=== PATIENT | female | born 1950 | race Caucasian/White ===

== ENCOUNTER → 2023-10-11 14:41 | Outpatient (REF) | payer MEDICARE, SELFPAY | LOC: HWRAD 14:41 | PROVIDERS: ATTENDING PHYSICIAN Podiatrist Foot & Ankle Surgery; FAMILY PHYSICIAN Internal Medicine | DX: M76.822 Posterior tibial tendinitis, left leg (principal); M19.072 Primary osteoarthritis, left ankle and foot | CPT/HCPCS: 73630 ==

== ENCOUNTER → 2023-10-28 06:34 | Outpatient (REF) | payer MEDICARE, SELFPAY ==
[2023-10-28 10:08] LABS: % Basophils 0.5 % (0-2); % Eosinophils 0.6 % (0-6); % Immature Granulocytes 0.6 % (0-0.5); % Lymphocytes 24.2 % (20.5-51.1); % Monocytes 4.5 % (1.7-9.3); % Neutrophils 69.6 % (42.2-75.2); Absolute Basophils 0.1 10^3/uL (0-0.2); Absolute Eosinophils 0.1 10^3/uL (0-0.7); Absolute Immature Granulocytes 0.1 10^3/uL (0-0.05); Absolute Lymphocytes 3.4 10^3/uL (1.2-3.4); Absolute Monocytes 0.6 10^3/uL (0.1-0.6); Absolute Neutrophils 9.6 10^3/uL (1.4-6.5); Hemoglobin 14.6 g/dL (12.0-16.0); Mean Corp Hgb Conc. 33.2 g/dL (33.0-37.0); Mean Corpuscular Hgb 30.8 pg (27.0-31.0); Mean Corpuscular Volume 92.8 fL (81.0-99.0); Mean Platelet Volume 9.1 fL (7.4-10.4); Nucleated Red Blood Cells % 0 %; Platelet Count 304 10^3/uL (130-400); Red Blood Cell Count 4.74 10^6/uL (4.20-5.40); Red Cell Dist. Width 12.9 % (11.5-14.5); White Blood Cell Count 13.9 10^3/uL (4.8-10.8)
[2023-10-28 11:43] LABS: ALT (SGPT) 25 U/L (0-35); AST (SGOT) 24 U/L (14-36); Albumin 4.6 g/dl (3.5-5.0); Alkaline Phosphatase 89 U/L (38-126); Blood Urea Nitrogen 25 mg/dl (7-17); Carbon Dioxide 28 mmol/L (22-30); Chloride 104 mmol/L (98-107); Glucose 104 mg/dl (70-99); HDL Cholesterol 58 mg/dl; LDL Cholesterol, Calculated 105 mg/dl; Potassium 5.1 mmol/L (3.5-5.1); Sodium 138 mmol/L (135-145); Total Bilirubin 0.9 mg/dl (0.2-1.3); Total Cholesterol 182 mg/dl (50-199); Total Protein 7.1 g/dl (6.3-8.2); Triglyceride 98 mg/dl (10-149); Very Low Density Lipoprotein 19 mg/dl (0-30); eGFR > 60.00
== END ==
LOC: HWLAB 06:34
PROVIDERS: ATTENDING PHYSICIAN Internal Medicine
DX: E03.9 Hypothyroidism, unspecified (principal); K64.9 Unspecified hemorrhoids; R79.89 Other specified abnormal findings of blood chemistry; E66.9 Obesity, unspecified; E78.2 Mixed hyperlipidemia; Z00.00 Encounter for general adult medical examination without abnormal findings; Z12.31 Encounter for screening mammogram for malignant neoplasm of breast
CPT/HCPCS: 36415; 80053; 80061; 85025

== ENCOUNTER → 2023-11-28 09:57 | Outpatient (REF) | payer MEDICARE, SELFPAY ==
[2023-11-28 13:08] LABS: % Basophils 0.5 % (0-2); % Eosinophils 0.6 % (0-6); % Immature Granulocytes 0.8 % (0-0.5); % Monocytes 4.1 % (1.7-9.3); Absolute Basophils 0.1 10^3/uL (0-0.2); Absolute Eosinophils 0.1 10^3/uL (0-0.7); Absolute Immature Granulocytes 0.1 10^3/uL (0-0.05); Absolute Monocytes 0.4 10^3/uL (0.1-0.6); Hemoglobin 14.4 g/dL (12.0-16.0); Mean Corp Hgb Conc. 33.5 g/dL (33.0-37.0); Mean Corpuscular Volume 92.5 fL (81.0-99.0); Mean Platelet Volume 9.6 fL (7.4-10.4); Nucleated Red Blood Cells % 0 %; Platelet Count 287 10^3/uL (130-400); Red Blood Cell Count 4.65 10^6/uL (4.20-5.40); Red Cell Dist. Width 13.1 % (11.5-14.5); White Blood Cell Count 10.6 10^3/uL (4.8-10.8)
== END ==
LOC: HWLAB 09:57
PROVIDERS: ATTENDING PHYSICIAN Internal Medicine
DX: D72.829 Elevated white blood cell count, unspecified (principal)
CPT/HCPCS: 36415; 85025

== ENCOUNTER → 2024-02-24 11:21 | Outpatient (REF) | payer MEDICARE, SELFPAY ==
[2024-02-24 13:00] LABS: % Basophils 0.6 % (0-2); % Eosinophils 1.1 % (0-6); % Immature Granulocytes 0.6 % (0-0.5); % Lymphocytes 23.1 % (20.5-51.1); % Monocytes 4.5 % (1.7-9.3); % Neutrophils 70.1 % (42.2-75.2); Absolute Basophils 0.1 10^3/uL (0-0.2); Absolute Eosinophils 0.1 10^3/uL (0-0.7); Absolute Immature Granulocytes 0.1 10^3/uL (0-0.05); Absolute Lymphocytes 2.4 10^3/uL (1.2-3.4); Absolute Monocytes 0.5 10^3/uL (0.1-0.6); Absolute Neutrophils 7.2 10^3/uL (1.4-6.5); Hematocrit 40.9 % (37.0-47.0); Mean Corp Hgb Conc. 34.2 g/dL (33.0-37.0); Mean Corpuscular Hgb 31.2 pg (27.0-31.0); Mean Corpuscular Volume 91.1 fL (81.0-99.0); Mean Platelet Volume 9.4 fL (7.4-10.4); Nucleated Red Blood Cells % 0 %; Platelet Count 290 10^3/uL (130-400); Red Blood Cell Count 4.49 10^6/uL (4.20-5.40); Red Cell Dist. Width 12.5 % (11.5-14.5); White Blood Cell Count 10.2 10^3/uL (4.8-10.8)
[2024-02-24 13:34] LABS: ALT (SGPT) 39 U/L (0-35); AST (SGOT) 34 U/L (14-36); Albumin 4.4 g/dl (3.5-5.0); Alkaline Phosphatase 92 U/L (38-126); Blood Urea Nitrogen 26 mg/dl (7-17); Calcium 11.2 mg/dl (8.4-10.2); Carbon Dioxide 28 mmol/L (22-30); Chloride 100 mmol/L (98-107); Glucose 95 mg/dl (70-99); Potassium 4.9 mmol/L (3.5-5.1); Sodium 135 mmol/L (135-145); Total Bilirubin 0.5 mg/dl (0.2-1.3); Total Protein 6.6 g/dl (6.3-8.2); eGFR > 60.00
[2024-02-24 14:04] LABS: TSH Reflex To Free T4 2.78 uIU/ml (0.47-4.68)
== END ==
LOC: HWLAB 11:21
PROVIDERS: ATTENDING PHYSICIAN Internal Medicine
DX: R42 Dizziness and giddiness (principal); E03.9 Hypothyroidism, unspecified
CPT/HCPCS: 36415; 80053; 84443; 85025

== ENCOUNTER 2024-03-06 15:19 | Emergency (ER) | payer MEDICARE, SELFPAY ==
[2024-03-06 15:23] VITALS: BP 144/87
[2024-03-06 15:55] LABS: % Basophils 0.6 % (0-2); % Eosinophils 1.6 % (0-6); % Immature Granulocytes 0.6 % (0-0.5); % Lymphocytes 25.3 % (20.5-51.1); % Neutrophils 66.9 % (42.2-75.2); Absolute Basophils 0.1 10^3/uL (0-0.2); Absolute Eosinophils 0.2 10^3/uL (0-0.7); Absolute Immature Granulocytes 0.1 10^3/uL (0-0.05); Absolute Lymphocytes 2.7 10^3/uL (1.2-3.4); Absolute Monocytes 0.5 10^3/uL (0.1-0.6); Absolute Neutrophils 7.1 10^3/uL (1.4-6.5); Hematocrit 39.1 % (37.0-47.0); Hemoglobin 13.5 g/dL (12.0-16.0); Mean Corp Hgb Conc. 34.5 g/dL (33.0-37.0); Mean Corpuscular Volume 89.9 fL (81.0-99.0); Mean Platelet Volume 9.1 fL (7.4-10.4); Nucleated Red Blood Cells % 0 %; Platelet Count 273 10^3/uL (130-400); Red Blood Cell Count 4.35 10^6/uL (4.20-5.40); Red Cell Dist. Width 12.4 % (11.5-14.5); White Blood Cell Count 10.6 10^3/uL (4.8-10.8)
[2024-03-06 16:15] LABS: ALT (SGPT) 64 U/L (0-35); AST (SGOT) 50 U/L (14-36); Albumin 4.4 g/dl (3.5-5.0); Alkaline Phosphatase 92 U/L (38-126); Blood Urea Nitrogen 19 mg/dl (7-17); Calcium 10.6 mg/dl (8.4-10.2); Carbon Dioxide 27 mmol/L (22-30); Chloride 104 mmol/L (98-107); Glucose 116 mg/dl (70-99); Potassium 4.3 mmol/L (3.5-5.1); Sodium 140 mmol/L (135-145); Total Bilirubin 0.4 mg/dl (0.2-1.3); Total Protein 6.6 g/dl (6.3-8.2); eGFR > 60.00
[2024-03-06 18:18] VITALS: BP 138/84
--- NOTE | 2024-03-06 19:22 | ED.CVA ---
History of Present Illness
General
Chief Complaint: CVA/TIA Symptoms
Source: patient
Exam Limitations: none
Time Seen by Provider: 03/06/24 18:17
Nursing documentation reviewed up to this point in time: agreed with
Onset of Stroke Symptoms
Onset of symptoms known: No
Time pt last seen normal is known: No
History of Present Illness
History of Present Illness:
Patient is a 73-year-old female who presents to the ER for evaluation. She reports her in the end of December and she became very depressed and admitted herself to [facility] on January 23 for 3 weeks. She was started on a lot of
medication but continued on Lexapro and Abilify. She started to feel very dizzy and lightheaded 3 weeks ago. She felt that she has some twitching in her mouth and her psychiatrist took her off of Abilify 4 days ago and cut her Lexapro in half.
For the past 3 to 4 days however she notices that her hands feel bilaterally weak and her speech is different. She feels that her 's ' sounds different than they normally do and that at times she talks with a lisp. she reports that she thinks she
sounds like she has ' tardive dyskinesia.'
She denies any headache .
Past History
Past History
ED Past Medical History: Hypercholesterolemia and Hypothyroidism
Social History
Tobacco: Non-smoker
Alcohol: Occasional
Drug: None
Review of Systems
Review of Systems
Allergies reviewed?: Yes
All Other Systems: ROS reviewed and negative except as documented in HPI and ROS
Constitutional: Reports no symptoms
EENT: Reports no symptoms
Respiratory: Reports no symptoms
Cardiac: Reports no symptoms
ABD/GI: Reports no symptoms
: Reports no symptoms
Musculoskeletal: Reports no symptoms
Skin: Reports no symptoms
Neurological: Reports other (speech is different sensation that hands feel weak )
Psychiatric: Reports no symptoms
Phy Exam
General Physical Exam
General Presentation: no apparent distress
General age: appears stated age
General Skin: warm and dry
General Habitus: normal
General Mental: alert
General Hydration: appears well hydrated
ENT Exam
ENT Exam: EOMI
Eye Exam
Eye Exam: PERRL and EOMI
Eye Exam General: PERRL: bilateral and EOM intact: bilateral
Pupil Exam: Bilateral: round and reactive
Cardiovascular Exam
Cardiovascular Exam: regular rate/rhythm, no murmur and normal peripheral pulses
Pulmonary Exam
Pulmonary Exam: lungs clear and no respiratory distress
Neurological Exam
Neurological Exam: alert, oriented x3, no motor deficits, no sensory deficits and other (Full strength in upper and lower extremities bilaterally normal director safety council strength bilaterally normal sensation bilaterally no facial droop speech is clear at times
her 's ' sound like a lisp )
NIH Stroke Score
Level of Consciousness: 0 - Alert
LOC questions: 0-Answers both correctly
LOC Commands: 0-Performs both correctly
Best Gaze: 0-Normal
Visual James: 0=Normal, no visual loss
Facial palsy: 0=Normal, symmetrical
Motor - Right Arm: 0=No drift 10 seconds
Motor - Left Arm: 0=No drift 10 seconds
Motor - Right Le-No drift 5 seconds
Motor - Left Le-No drift 5 seconds
Limb Ataxia: 0-Absent
Sensation: 0-Normal
Best Language: 0-No aphasia
Dysarthria: 0-Normal
Extinction and Inattention: 0-No abnormality
Total Score:: 0
[place] Coma Scale
Eye Opening: Spontaneous
Verbal Response: Oriented
Motor Response: Obeys Commands
GCS Total Score: 15
Cerebellar
Cerebellar Function: normal finger to nose
Musculoskeletal Exam
Musculoskeletal Exam: full ROM
Skin Exam
Skin Exam: normal color and warm/dry
Psychiatric Exam
Psychiatric Exam: normal mood/affect
Course
Orders/Labs/Results
Orders:
Orders
03/06/24 15:40
Electrocardiogram (*1) Urgent
Reason for Study: Chest Pain
EKG- Treatment ONCE
03/06/24 15:45
Complete Blood Count/With Diff Urgent
Comprehensive Metabolic Panel Urgent
03/06/24 19:28
CT Head W/o Iv Contrast Urgent
Comment:
Reason For Exam: cva
Abnormal Lab Results
03/06/24
15:45
Abs Immat Gran (auto) 0.1 H 10^3/uL
(0-0.05)
Absolute Neuts (auto) 7.1 H 10^3/uL
(1.4-6.5)
Immature Gran % 0.6 H %
(0-0.5)
BUN 19 H mg/dl
(7-17)
Glucose 116 H mg/dl
(70-99)
Calcium 10.6 H mg/dl
(8.4-10.2)
AST 50 H U/L
(14-36)
ALT 64 H U/L
(0-35)
03/06/24 15:45
03/06/24 15:45
Vital Signs
Initial and Last Documented VS:
Initial Vital Signs
Temp Pulse Resp BP Pulse Ox
98.7 F 104 20 144/87 96
03/06/24 15:23 03/06/24 15:23 03/06/24 15:23 03/06/24 15:23 03/06/24 15:23
Last Documented Vital Signs
Temp Pulse Resp BP Pulse Ox
98.7 F 84 13 138/84 97
03/06/24 15:23 03/06/24 18:18 03/06/24 18:18 03/06/24 18:18 03/06/24 18:19
Inventory Representative consulted with Physician
Inventory Representative consulted with physician?: Yes
Name of Physician Consulted: Paula
MDM/Problems Addressed
Differential Diagnosis Includes:
Not limited to medication reaction tardive dyskinesia less likely CVA
MDM/Problems Addressed:
Symptoms are likely medication reaction from Abilify. Patient was just taken off his medicine by psychiatrist. While on this medication she had some facial twitching and since then has had intermittent speech issues. At times she reports her 'S
Sounds' sound like a Lisp. On exam I am minimally able to appreciate this however patient has no neurological deficits. No headache, CT head negative. No concerning findings consistent with stroke.
No history of hypertension or heart disease. Patient is well-appearing in no acute distress case reviewed ED physician likely from medications will try [id number] Benadryl as needed. Patient agreeable with this plan. I did recommend close
outpt follow up with PCP and psychiatrist.
Chronic conditions affecting care:
Recent treatment for depression
*Critical Care Note
Total Time (30-74mins, 75-104mins- exclusive of procedures): Not Applicable
ED Attending Note
-
Portions of this chart may have been created with voice recognition software.� Occasional wrong word or��sound alike� substitutions may have occurred due to the inherent limitations of voice recognition software.
Discharge Plan
Departure
Patient Disposition: Home (Routine Discharge)
Date of Disposition: 03/06/24
Time of Disposition: 23:13
Patient with high blood pressure during this ER visit?: Yes
Condition: Fair
Covid-19: Not Applicable
Discharge Problem:
medication reaction
Instructions: Adverse Drug Reactions, Adult ED
Prescriptions:
No Action
doxycycline hyclate 100 mg capsule
100 mg PO BID Qty: 14 0RF
Referrals:
Haley Richey DO [Family Provider] -
Activity Restrictions/Additional Instructions:
Follow-up with your family doctor and psychiatrist in the next several days for reevaluation. return if any worsening of symptoms you may take benadryl as needed.
Interventions
Interventions:
*Risk Screen - Suicide Last Done: 03/06/24 15:23
*General Assessment Last Done: 03/06/24 15:23
*Neglect/Abuse Screening Last Done: 03/06/24 15:23
ED- Fall Risk Assessment Last Done: 03/06/24 18:19
*ED COVID-19 Vaccine History Last Done: 03/06/24 18:18
ED- Cardiac Assessment Last Done: 03/06/24 18:19
ED- Neurological Assessment Last Done: 03/06/24 18:19
ED- Pulmonary Assessment Last Done: 03/06/24 18:19
ED Swallowing Screen Last Done: 03/06/24 21:50
Discharge Date and Time
Print Language: CITIZEN OF [place]
== END 2024-03-06 23:34 | disposition home or self-care (01) ==
LOC: EMR 15:19
PROVIDERS: Emergency Medicine; EMERGENCY PHYSICIAN Emergency Medicine; FAMILY PHYSICIAN Internal Medicine
DX: R53.1 Weakness (principal); R47.81 Slurred speech; T43.595A Adverse effect of other antipsychotics and neuroleptics, initial encounter; F32.A Depression, unspecified; E78.00 Pure hypercholesterolemia, unspecified; E03.9 Hypothyroidism, unspecified
CPT/HCPCS: 99284; 70450; 80053; 85025; 93005

== ENCOUNTER → 2024-03-09 09:24 | Outpatient (REF) | payer MEDICARE, SELFPAY ==
[2024-03-09 11:15] LABS: ALT (SGPT) 75 U/L (0-35); AST (SGOT) 47 U/L (14-36); Albumin 4.4 g/dl (3.5-5.0); Alkaline Phosphatase 100 U/L (38-126); Blood Urea Nitrogen 19 mg/dl (7-17); Calcium 10.6 mg/dl (8.4-10.2); Carbon Dioxide 30 mmol/L (22-30); Chloride 101 mmol/L (98-107); Glucose 103 mg/dl (70-99); Potassium 4.6 mmol/L (3.5-5.1); Sodium 139 mmol/L (135-145); Total Bilirubin 0.7 mg/dl (0.2-1.3); Total Protein 6.6 g/dl (6.3-8.2); eGFR > 60.00
[2024-03-09 11:32] LABS: Vitamin D, 25-OH*** 29.9 ng/mL (30-80)
[2024-03-10 09:35] LABS: Intact PTH 113.4 pg/ml (13.6-85.8)
== END ==
LOC: HWLAB 09:24
PROVIDERS: ATTENDING PHYSICIAN Internal Medicine
DX: E83.52 Hypercalcemia (principal)
CPT/HCPCS: 36415; 80053; 82306; 83970

== ENCOUNTER → 2024-04-09 07:29 | Outpatient (REF) | payer MEDICARE, SELFPAY ==
[2024-04-09 08:25] LABS: Ionized Calcium 1.26 mMOL/L (1.15-1.33)
[2024-04-09 09:02] LABS: ALT (SGPT) 45 U/L (0-35); AST (SGOT) 30 U/L (14-36); Albumin 4.2 g/dl (3.5-5.0); Alkaline Phosphatase 90 U/L (38-126); Blood Urea Nitrogen 21 mg/dl (7-17); Calcium 10.2 mg/dl (8.4-10.2); Carbon Dioxide 31 mmol/L (22-30); Chloride 104 mmol/L (98-107); Glucose 101 mg/dl (70-99); Potassium 4.5 mmol/L (3.5-5.1); Sodium 145 mmol/L (135-145); Total Bilirubin 0.5 mg/dl (0.2-1.3); Total Protein 6.5 g/dl (6.3-8.2); eGFR > 60.00
[2024-04-09 09:22] LABS: Vitamin D, 25-OH*** 39.7 ng/mL (30-80)
[2024-04-11 12:08] LABS: Intact PTH 78.4 pg/ml (13.6-85.8)
== END ==
LOC: REG 07:29
PROVIDERS: ATTENDING PHYSICIAN Internal Medicine Endocrinology, Diabetes & Metabolism; FAMILY PHYSICIAN Internal Medicine
DX: M81.0 Age-related osteoporosis without current pathological fracture (principal); E55.9 Vitamin D deficiency, unspecified; R42 Dizziness and giddiness; R79.89 Other specified abnormal findings of blood chemistry; R74.8 Abnormal levels of other serum enzymes
CPT/HCPCS: 36415; 80053; 82306; 82330; 83970

== ENCOUNTER → 2024-04-12 07:28 | Outpatient (REF) | payer MEDICARE, SELFPAY | LOC: PAVMRI 07:28 | PROVIDERS: ATTENDING PHYSICIAN Internal Medicine; REFERRING PHYSICIAN Psychiatry & Neurology Psychiatry | DX: R42 Dizziness and giddiness (principal); R79.89 Other specified abnormal findings of blood chemistry; R74.8 Abnormal levels of other serum enzymes | CPT/HCPCS: 70553; A9575 ==

== ENCOUNTER → 2024-10-05 11:55 | Outpatient (REF) | payer MEDICARE, SELFPAY | LOC: HWRAD 11:55 | PROVIDERS: ATTENDING PHYSICIAN Specialist; FAMILY PHYSICIAN Internal Medicine; REFERRING PHYSICIAN Chiropractor | DX: M25.569 Pain in unspecified knee (principal) | CPT/HCPCS: 73560 ==

== ENCOUNTER → 2024-10-10 12:00 | Outpatient (REF) | payer MEDICARE, SELFPAY | LOC: HWRAD 12:00 | PROVIDERS: ATTENDING PHYSICIAN Specialist; FAMILY PHYSICIAN Family Medicine; REFERRING PHYSICIAN Chiropractor | DX: R07.82 Intercostal pain (principal); M54.51 Vertebrogenic low back pain; M43.16 Spondylolisthesis, lumbar region; M54.14 Radiculopathy, thoracic region | CPT/HCPCS: 71100; 72072; 72114; 72170 ==

== ENCOUNTER → 2024-10-17 07:44 | Outpatient (REF) | payer MEDICARE, SELFPAY ==
[2024-10-17 10:29] LABS: HDL Cholesterol 44 mg/dl; LDL Cholesterol, Calculated 95 mg/dl; Total Cholesterol 178 mg/dl (50-199); Triglyceride 197 mg/dl (10-149); Very Low Density Lipoprotein 39 mg/dl (0-30)
== END ==
LOC: HWWDC 07:44
PROVIDERS: ATTENDING PHYSICIAN Internal Medicine; REFERRING PHYSICIAN Internal Medicine Endocrinology, Diabetes & Metabolism
DX: Z12.31 Encounter for screening mammogram for malignant neoplasm of breast (principal); E66.9 Obesity, unspecified; E78.2 Mixed hyperlipidemia
CPT/HCPCS: 36415; 77063; 77067; 80061

== ENCOUNTER → 2024-10-19 13:46 | Outpatient (REF) | payer MEDICARE, SELFPAY | LOC: HWRAD 13:46 | PROVIDERS: ATTENDING PHYSICIAN Podiatrist Foot & Ankle Surgery; FAMILY PHYSICIAN Internal Medicine | DX: S92.912A Unspecified fracture of left toe(s), initial encounter for closed fracture (principal) | CPT/HCPCS: 73630 ==

== ENCOUNTER → 2025-01-02 10:30 | Outpatient (REF) | payer MEDICARE, SELFPAY ==
[2025-01-02 11:57] LABS: Uric Acid 4.4 mg/dl (2.5-6.2)
== END ==
LOC: HWLAB 10:30
PROVIDERS: ATTENDING PHYSICIAN Podiatrist Foot & Ankle Surgery; FAMILY PHYSICIAN Internal Medicine
DX: M10.9 Gout, unspecified (principal)
CPT/HCPCS: 36415; 84550

== ENCOUNTER → 2025-02-01 08:54 | Outpatient (REF) | payer MEDICARE, SELFPAY ==
[2025-02-01 09:36] LABS: Hematocrit 41.8 % (37.0-47.0); Hemoglobin 13.9 g/dL (12.0-16.0); Mean Corp Hgb Conc. 33.3 g/dL (33.0-37.0); Mean Corpuscular Volume 93.5 fL (81.0-99.0); Nucleated Red Blood Cells % 0 %; Platelet Count 235 10^3/uL (130-400); Red Cell Dist. Width 12.6 % (11.5-14.5)
[2025-02-01 10:07] LABS: ALT (SGPT) 21 U/L (0-35); AST (SGOT) 24 U/L (14-36); Albumin 4.6 g/dl (3.5-5.0); Alkaline Phosphatase 76 U/L (38-126); Blood Urea Nitrogen 18 mg/dl (7-17); Calcium 10.8 mg/dl (8.4-10.2); Carbon Dioxide 32 mmol/L (22-30); Chloride 106 mmol/L (98-107); Glucose 99 mg/dl (70-99); Potassium 5.0 mmol/L (3.5-5.1); Sodium 141 mmol/L (135-145); Total Protein 7.0 g/dl (6.3-8.2); eGFR > 60.00
[2025-02-01 10:25] LABS: Vitamin D, 25-OH*** 72.4 ng/mL (30-80)
[2025-02-01 10:38] LABS: TSH 2.98 uIU/ml (0.47-4.68)
== END ==
LOC: REG 08:54
PROVIDERS: ATTENDING PHYSICIAN Internal Medicine Endocrinology, Diabetes & Metabolism; FAMILY PHYSICIAN Internal Medicine; OTHER PHYSICIAN Nurse Practitioner Primary Care
DX: M81.0 Age-related osteoporosis without current pathological fracture (principal); E55.9 Vitamin D deficiency, unspecified; Z79.899 Other long term (current) drug therapy
CPT/HCPCS: 36415; 80053; 82306; 82330; 83970; 84439; 84443; 85025

== ENCOUNTER → 2025-02-12 10:46 | Outpatient (REF) | payer MEDICARE, SELFPAY | LOC: HWRAD 10:46 | PROVIDERS: ATTENDING PHYSICIAN Specialist; FAMILY PHYSICIAN Internal Medicine | DX: M25.511 Pain in right shoulder (principal) | CPT/HCPCS: 73200 ==

== ENCOUNTER → 2025-02-20 10:26 | Outpatient (REF) | payer MEDICARE, SELFPAY | LOC: MRI 3T 10:26 | PROVIDERS: ATTENDING PHYSICIAN Specialist; FAMILY PHYSICIAN Internal Medicine | DX: M54.16 Radiculopathy, lumbar region (principal) | CPT/HCPCS: 72148 ==

== ENCOUNTER → 2025-03-19 09:09 | Outpatient (REF) | payer MEDICARE, SELFPAY | LOC: HWRAD 09:09 | PROVIDERS: ATTENDING PHYSICIAN Internal Medicine Endocrinology, Diabetes & Metabolism; FAMILY PHYSICIAN Internal Medicine | DX: E83.52 Hypercalcemia (principal) | CPT/HCPCS: 76536 ==

== ENCOUNTER → 2025-03-27 08:53 | Outpatient (REF) | payer MEDICARE, SELFPAY | LOC: RAD 08:53 | PROVIDERS: ATTENDING PHYSICIAN Internal Medicine Endocrinology, Diabetes & Metabolism; FAMILY PHYSICIAN Internal Medicine | DX: E83.52 Hypercalcemia (principal) | CPT/HCPCS: 78071; A9500 ==

== ENCOUNTER 2025-04-16 10:16 | Inpatient (IN) | payer MEDICARE, SELFPAY ==
--- NOTE | 2025-03-14 16:11 | CM ---
CM received call from patient's mental health counselor that patient was very anxious about her upcoming surgery and would require home care. CM stated that patient will be called to discuss any further discharge planning. Counselor advised this CM
that she has called [facility] to confirm patient was eligible for home care.
CM spoke with patient regarding discharge planning post operatively.
Demographics: lives alone independently.
Living situation: lives alone, neighbor will be driving patient, last year and patient has no children
Support Person Post Operatively: neighbor
History of
VN: No
SNF: No
Outpatient: Patient does not have a ride to outpatient therapy appointments, requesting home care.
Has patient purchased required equipment: yes
PCP: Dr. Richey
Pharmacy: [facility]
Post Operative Discharge Plan: Home care
--- NOTE | 2025-03-25 11:54 | CM ---
CM received call from patient asking questions regarding a second opinion she received. CLEMENCIA spoke with Mary at [facility]. Mary will contact patient.
--- NOTE | 2025-04-01 15:12 | VNURNOTE ---
Patient is scheduled for an elective R reverse TSA on 04/16 ELIDIA - he is a same day patient with Dr Mauricio. Spoke with patient prior to surgery. Introduced role of [facility] Liaison. Patient reports that she lives alone. She reports that her neighbor can
assist her post op.
PCP is Dr Haley Richey
Discussed SDS joint protocol and post surgical plans.
Reviewed that she will have VN services initially.
Patient selects [facility] for HH needs.
Patient is in agreement with plan. [facility] contact number provided. Referral placed in [facility].
Plan: [facility]
[2025-04-05 14:13] VITALS: BMI 32.6
[2025-04-05 14:32] LABS: Hematocrit 41.0 % (37.0-47.0); Hemoglobin 13.6 g/dL (12.0-16.0); Mean Corp Hgb Conc. 33.2 g/dL (33.0-37.0); Mean Corpuscular Volume 94.3 fL (81.0-99.0); Platelet Count 254 10^3/uL (130-400); Red Cell Dist. Width 12.4 % (11.5-14.5)
[2025-04-05 15:02] LABS: ALT (SGPT) 21 U/L (0-35); AST (SGOT) 22 U/L (14-36); Albumin 4.5 g/dl (3.5-5.0); Alkaline Phosphatase 81 U/L (38-126); Blood Urea Nitrogen 20 mg/dl (7-17); Calcium 10.6 mg/dl (8.4-10.2); Carbon Dioxide 28 mmol/L (22-30); Chloride 104 mmol/L (98-107); Estimated Creatinine Clearance 85 ml/min; Glucose 89 mg/dl (70-99); Potassium 4.4 mmol/L (3.5-5.1); Sodium 139 mmol/L (135-145); Total Protein 7.0 g/dl (6.3-8.2); eGFR > 60.00
[2025-04-06 09:29] LABS: Glycohemoglobin (HgbA1c) 5.6 % (4.0-5.6)
[2025-04-09 12:55] VITALS: BMI 32.6
[2025-04-16] VITALS (10 sets, daily range): BP systolic 111–156; BP diastolic 67–76
[2025-04-16] MEDS: NORMOSOL-R/PLASMALYTE-A 1000 IV ×3 (10:25→18:14)
[2025-04-16] MEDS: TYLENOL 1000 MG PO (10:35)
[2025-04-16] MEDS: CELEBREX 200 MG PO (10:35)
--- NOTE | 2025-04-16 10:35 | W.PN.UPDATE ---
Update Note
Progress Note Update
R shoulder OA w/ rotator cuff arthropathy s/p R Reverse TSA w/ Dr Mauricio 04/16/2025
DVT prophylaxis - ASA, b/l venous foot pumps
HTN - + parameters - monitor BP
HLD
DDD
Hypothyroidism
Hyperparathyroidism
PTSD
Depression
Anxiety
Vitamin D deficiency
Osteopenia
--- NOTE | 2025-04-16 17:00 | PTCARENOTE ---
Pt arrived to 2S in bed. Full assessment completed. RUE NWB maintained in sling. RUE neurovascular assessment WDL. R shoulder DSG C/D/I. IVF infusing per order. Pt tearful reflecting on husbands within the past year, emotional support
provided. Bed locked and in the lowest position, safety maintained. Oriented to room and call latham.
[2025-04-16] MEDS: ASPIRIN 325 MG PO (18:12)
[2025-04-16] MEDS: ROXICODONE 10 MG PO ×2 (18:12→23:39)
[2025-04-16] MEDS: VITAMIN D3 (cholecalciferol) 50 MCG PO (18:12)
[2025-04-16] MEDS: TYLENOL 650 MG PO ×3 (18:12→23:39)
[2025-04-16] MEDS: VITAMIN B-12 1000 MCG PO (18:12)
[2025-04-16] MEDS: PROSCAR 5 MG PO (18:13)
[2025-04-16] MEDS: ANCEF 5 IV (20:08)
[2025-04-16] MEDS: BACTROBAN 2% OINTMENT 1 APPLIC NASAL (20:09)
[2025-04-16] MEDS: LONITEN 1.25 MG PO (20:09)
[2025-04-16] MEDS: DECADRON 4 MG PO (20:10)
[2025-04-16] MEDS: COLACE 100 MG PO (20:12)
[2025-04-16] MEDS: SENOKOT PO (20:12)
[2025-04-16] MEDS: NEURONTIN 300 MG PO (21:55)
[2025-04-16] MEDS: PEPCID 20 MG PO (21:55)
[2025-04-16] MEDS: LIPITOR 40 MG PO (21:55)
[2025-04-17] MEDS: ANCEF 5 IV (03:16)
[2025-04-17 03:24] VITALS: BP 104/63
[2025-04-17] MEDS: TYLENOL PO (04:39)
[2025-04-17] MEDS: SYNTHROID 50 MCG PO (05:33)
[2025-04-17 07:20] VITALS: BP 113/64
--- NOTE | 2025-04-17 09:06 | CM ---
CM discussed discharge plan with OT and orthopedic PA. CM updated [facility] Admission RN.
PLAN: [facility]
--- NOTE | 2025-04-17 09:11 | W.PN.ORTHO ---
Today's Communication / Plan
-
D/c today if remaining clinically stable.
Will be d/c w/ VN, home OT.
Assessment
.
Distal Motor Intact: Yes
Dressing:
Quarter-sized area of old incisional bleeding. Dressing otherwise C/D/I.
Assessment:
R shoulder OA w/ rotator cuff arthropathy s/p R Reverse VIANEY w/ Dr Mauricio 04/16/2025
DVT prophylaxis - ASA, b/l venous foot pumps
HTN - + parameters - BPs overall stable
Chronic pain syndrome w/ opioid dependence - patient happy w/ pain regimen for d/c
HLD
DDD
Hypothyroidism
Hyperparathyroidism
PTSD
Depression
Anxiety
Vitamin D deficiency
Osteopenia
Plan
.
Surgery / Date: R Reverse TSA w/ Dr Mauricio 04/16/2025
DVT Prophylaxis: Aspirin
Activity:
Out of bed.
PT/OT
Discharge Plan: Home w/ VN
Subjective
.
.:
Patient examined resting in bed.
Reports back pain but appears comfortable. H/o chronic pain at baseline. Is due for pain meds.
Denies any other new significant complaints.
Vital Signs and Labs
.
Vital Signs and Labs:
Lab Results
04/05/25 12:50
04/05/25 12:50
Temp Pulse Resp BP Pulse Ox
98 F 96 16 104/63 93
04/17/25 03:24 04/17/25 03:24 04/17/25 03:24 04/17/25 03:24 04/17/25 03:24
Non-invasive Hgb result: 16.3
Physical Exam
-
HEENT: No pallor, cyanosis, or jaundice. Throat clear.
NECK: Supple. No JVD.
RESPIRATORY: Lungs clear to auscultation.
CVS: S1, S2 normal. RRR.�
ABDOMEN: Soft, non-tender. No distension. Obese.
EXTREMITIES: + RUE sling. Able to wiggle fingers b/l. Good densitometer reader, radial pulses b/l. Strength equal, no calf pain with palpation/dorsiflexion. Calves soft.
PICKING SUPERVISOR: AOx3. No focal deficits. map mounter grossly intact
--- NOTE | 2025-04-17 09:20 | W.DS.TRANS ---
DC Summary - Public Welfare Director
-
Discharge Instructions:
Sleep Apnea Risk Low
Discharge Diagnosis/Procedures R shoulder OA w/ rotator cuff arthropathy s/p R
Reverse TSA w/ Dr Mauricio 04/16/2025
Diet Regular
Additional Diets Adequate hydration, minimize opioids, and wear
TEDs stockings to prevent low blood pressure/
dizziness.
Activity As tolerated
Additional Activity Non-weightbearing right upper extremity
Driving Restrictions Not until seen by your Dr
Bathing Restrictions OK to Shower
Other Services OT,VN
Wound Care Leave dressing on until seen by surgeon's office
for follow-up.
Instructions:
Stand-Alone Forms: Total Shoulder Replacement D/C
Changes to Home Medications: Yes
Discharge Medications:
DC Medications w/original date entered in [facility]
Nutrafol 1 tab PO DAILY@149904/04/25
atorvastatin 40 mg tablet 40 mg PO HS 04/04/25
cholecalciferol (vitamin D3) 50 mcg (2,000 unit) capsule (Vitamin D3) 50 mcg PO DAILY@149904/04/25
cyanocobalamin (vitamin B-12) 1,000 mcg tablet (Vitamin B-12) 1,000 mcg PO DAILY@149904/04/25
finasteride 5 mg tablet 5 mg PO DAILY@149904/04/25
levothyroxine 50 mcg tablet (Synthroid) 50 mcg PO DAILY@0700 04/04/25
minoxidil 2.5 mg tablet 1.25 mg PO DAILY@149904/04/25
mupirocin 2 % topical ointment 1 applic topical BID infection prevention #1 tube 04/04/25
celecoxib 200 mg capsule 200 mg PO DAILY Anti-inflammatory #14 caps 04/05/25
dexamethasone 4 mg tablet 4 mg PO BID inflammation #6 tabs 04/05/25
famotidine 20 mg tablet 20 mg PO HS GI prophylaxis #30 tabs 04/05/25
gabapentin 300 mg capsule 300 mg PO HS sleep/pain #10 caps 04/05/25
ondansetron 4 mg disintegrating tablet 4 mg PO Q6H PRN n/v #20 tabs 04/05/25
oxycodone 5 mg tablet 5 mg PO Q6H PRN 1 tab moderate pain, 2 tabs severe pain #30 tabs 04/05/25
acetaminophen 500 mg tablet (Tylenol Extra Strength) 1,000 mg (2 x 500 mg) PO Q6H #60 tabs 04/17/25
aspirin 325 mg tablet 325 mg PO DAILY #30 tabs 04/17/25
docusate sodium 100 mg capsule 100 mg PO BID #30 caps 04/17/25
magnesium hydroxide 400 mg/5 mL oral suspension (Milk of Magnesia) 30 ml PO HS PRN constipation #3,780 mL 04/17/25
sennosides 8.6 mg tablet (Swapna-serina) 17.2 mg (2 x 8.6 mg) PO BID #30 tabs 04/17/25
spironolactone 25 mg tablet 25 mg PO DAILY@1500 #1 tab 04/17/25
Home Medication Changes
celecoxib 200 mg capsule 200 mg PO DAILY Anti-inflammatory #14 caps 04/05/25
dexamethasone 4 mg tablet 4 mg PO BID inflammation #6 tabs 04/05/25
famotidine 20 mg tablet 20 mg PO HS GI prophylaxis #30 tabs 04/05/25
gabapentin 300 mg capsule 300 mg PO HS sleep/pain #10 caps 04/05/25
ondansetron 4 mg disintegrating tablet 4 mg PO Q6H PRN n/v #20 tabs 04/05/25
oxycodone 5 mg tablet 5 mg PO Q6H PRN 1 tab moderate pain, 2 tabs severe pain #30 tabs 04/05/25
acetaminophen 500 mg tablet (Tylenol Extra Strength) 1,000 mg (2 x 500 mg) PO Q6H #60 tabs 04/17/25
aspirin 325 mg tablet 325 mg PO DAILY #30 tabs 04/17/25
docusate sodium 100 mg capsule 100 mg PO BID #30 caps 04/17/25
magnesium hydroxide 400 mg/5 mL oral suspension (Milk of Magnesia) 30 ml PO HS PRN constipation #3,780 mL 04/17/25
sennosides 8.6 mg tablet (Swapna-serina) 17.2 mg (2 x 8.6 mg) PO BID #30 tabs 04/17/25
spironolactone 25 mg tablet 25 mg PO DAILY@1500 #1 tab 04/17/25
Pending Results: Yes (Hepatitis C antibody)
[2025-04-17 09:29] VITALS: BP 127/68; PULSE 87; O2SAT 94
[2025-04-17] MEDS: SENOKOT 17.2 MG PO (09:30)
[2025-04-17] MEDS: COLACE 100 MG PO (09:30)
[2025-04-17] MEDS: CELEBREX 200 MG PO (09:30)
[2025-04-17] MEDS: TYLENOL 650 MG PO ×2 (09:30→12:08)
[2025-04-17] MEDS: DECADRON 4 MG PO (09:31)
[2025-04-17] MEDS: BACTROBAN 2% OINTMENT 1 APPLIC NASAL (09:31)
[2025-04-17] MEDS: ASPIRIN 325 MG PO (09:31)
[2025-04-17] MEDS: ROXICODONE 5 MG PO (09:33)
[2025-04-17 11:20] VITALS: BP 112/59
[2025-04-18 18:46] LABS: Hepatitis C Antibody Negative (Negative)
== END 2025-04-17 12:55 | disposition home health service (06) | DRG 483 ==
LOC: 2 SOUTH 10:16
PROVIDERS: ADMITTING PHYSICIAN Specialist; FAMILY PHYSICIAN Internal Medicine
PROC: 0LS30ZZ Reposition Right Upper Arm Tendon, Open Approach (ICD-10-PCS; 2025-04-16)
PROC: 0RRJ00Z Replacement of Right Shoulder Joint with Reverse Ball and Socket Synthetic Substitute, Open Approach (ICD-10-PCS; 2025-04-16)
DX: M19.011 Primary osteoarthritis, right shoulder (principal); F11.20 Opioid dependence, uncomplicated; G89.4 Chronic pain syndrome; I10 Essential (primary) hypertension
CPT/HCPCS: 36415; 73020; 80053; 83036; 85027; 86803; 86850; 86900; 86901; 87070; 93005; 97166; 97535; C1713; C1776